=== PATIENT | female | born 2000 | race Two or more races ===

== ENCOUNTER 2025-05-28 21:47 | Emergency (ER) | payer MEDICAID ==
[~2025-05-28] VITALS: Ht 154.9 cm; Wt 88.5 kg
[2025-05-29 01:03] VITALS: BP 124/73; TEMP 98.2; O2SAT 99
== END 2025-05-29 01:04 | disposition home or self-care (01) ==
LOC: ER 22:17
DX: R21 Rash and other nonspecific skin eruption (principal); L29.9 Pruritus, unspecified; W57.XXXA Bitten or stung by nonvenomous insect and other nonvenomous arthropods, initial encounter; Y93.89 Activity, other specified; Y92.89 Other specified places as the place of occurrence of the external cause; Y99.9 Unspecified external cause status